=== PATIENT | female | born 1955 | race Caucasian/White ===

== ENCOUNTER 2016-09-15 14:00 | Emergency (ER) | payer MEDICARE, OTHER ==
[2016-09-15 14:43] LABS: BILIRUBIN NEGATIVE (NEGATIVE); BLOOD NEGATIVE Ery/uL (NEGATIVE); CLARITY CLEAR (CLEAR); COLOR STRAW (YELLOW); GLUCOSE (U) NORMAL (NORMAL); KETONE (U) NEGATIVE (NEGATIVE); LEUKOCYTES NEGATIVE Leu/uL (NEGATIVE); NITRITE NEGATIVE (NEGATIVE); PROTEIN NEGATIVE (NEGATIVE); SPECIFIC GRAVITY <=1.005 (1.001-1.030); UROBILINOGEN 0.2 mg/dL (0.2-1.0)
[2016-09-15 15:19] LABS: BASOPHIL 0.4 % (0-2); EOSINOPHIL 0.7 % (0-5); HCT 44.5 % (37.0-47.0); HGB 15.2 g/dl (12.5-16.0); LYMPHOCYTE 29.1 % (15-48); MCH 30.2 pg (25.0-31.0); MCHC 34.2 g/dL (32.0-36.0); MCV 88.5 fL (78.0-100.0); MONOCYTE 10.5 % (0-12); MPV 8.9 fL (6.0-9.5); NEUTROPHIL 59.3 % (41-80); PLT 326 K/uL (150-400); RBC 5.03 M/uL (4.20-5.40); RDW 12.9 % (11.5-14.0); WBC 7.4 K/uL (4.0-10.5)
[2016-09-15 15:46] LABS: ALBUMIN 4.7 g/dL (3.4-4.8); POTASSIUM 4.2 mmol/L (3.5-5.1)
[2016-09-15 15:59] LABS: BILIRUBIN - TOTAL 0.3 mg/dL (0.1-1.0); CREATININE 0.9 mg/dL (0.5-1.0); GLOBULIN (CALCULATION) 2.5 g/dL (2.2-4.2); TOTAL PROTEIN 7.2 g/dL (6.4-8.3)
== END 2016-09-15 17:31 | disposition home or self-care (01) ==
LOC: FER 14:00
PROVIDERS: Emergency Medicine
DX: R10.31 Right lower quadrant pain (principal); R14.3 Flatulence; E86.0 Dehydration; I10 Essential (primary) hypertension; E03.9 Hypothyroidism, unspecified; M46.90 Unspecified inflammatory spondylopathy, site unspecified; F17.210 Nicotine dependence, cigarettes, uncomplicated; Z79.899 Other long term (current) drug therapy; Z88.0 Allergy status to penicillin; Z87.19 Personal history of other diseases of the digestive system; Z98.890 Other specified postprocedural states
CPT/HCPCS: 36415; 74000; 80053; 81003; 85025

== ENCOUNTER 2020-10-17 16:45 | Emergency (ER) | payer MEDICARE ==
[~2020-10-17 16:45] MED LIST: ASPIRIN EC81 MG PO; BENTYL10 MG PO; CLEOCIN300 MG PO; CYMBALTA 30MG C30 MG PO; INDERAL LA80 MG PO; MIRALAX 238GM238 GM PO; NEXIUM40 MG PO; PERCOCET 5-3251 EACH PO; PHENERGAN25 M1 PO; PRAVACHOL20 MG PO; SYNTHROID75 MCG PO; XANAX0.25 MG PO; ZOFRAN ODT4 MG SL; ZOLPIDEM 10MG T10 MG PO
[2020-10-17 20:00] LABS: BASOPHIL 0.8 % (0-2); EOSINOPHIL 0.9 % (0-7); HCT 40.5 % (37.0-47.0); HGB 13.6 g/dl (12.5-16.0); LYMPHOCYTE 23.6 % (15-48); MCH 31.4 pg (25.0-31.0); MCHC 33.6 g/dL (32.0-36.0); MCV 93.5 fL (78.0-100.0); MONOCYTE 9.4 % (0-12); MPV 8.3 fL (6.0-9.5); NRBC 0; PLT 269 K/uL (150-400); RBC 4.33 M/uL (4.20-5.40); WBC 7.4 K/uL (4.0-10.5)
[2020-10-17 20:19] LABS: ALBUMIN 3.8 g/dL (3.4-5.0); BILIRUBIN - TOTAL 0.3 mg/dL (0.2-1.0); BUN/CREAT RATIO (CALC) 11.4 RATIO; CREATININE 0.7 mg/dL (0.51-0.95); GLOBULIN (CALCULATION) 3.1 g/dL; TOTAL PROTEIN 6.9 g/dL (6.4-8.2)
[2020-10-17 20:27] LABS: POTASSIUM 4.2 mmol/L (3.5-5.1)
[2020-10-17 21:20] LABS: BILIRUBIN NEGATIVE (NEGATIVE); BLOOD TRACE-INTACT Ery/uL (NEGATIVE); CLARITY CLEAR (CLEAR); COLOR YELLOW (YELLOW); GLUCOSE (U) NORMAL (NORMAL); LEUKOCYTES NEGATIVE Leu/uL (NEGATIVE); NITRITE NEGATIVE (NEGATIVE); PROTEIN NEGATIVE (NEGATIVE); SPECIFIC GRAVITY <=1.005 (1.001-1.030); UROBILINOGEN 0.2 mg/dL (0.2-1.0); pH 6.5 (5.0-9.0)
[2020-10-17 21:24] LABS: BACTERIA TRACE; URINARY RBC RARE
== END 2020-10-17 23:44 | disposition home or self-care (01) ==
LOC: FER 16:45
PROVIDERS: Emergency Medicine
DX: R10.9 Unspecified abdominal pain (principal); G89.29 Other chronic pain; I10 Essential (primary) hypertension; F17.200 Nicotine dependence, unspecified, uncomplicated; Z79.899 Other long term (current) drug therapy; Z88.0 Allergy status to penicillin; Z98.890 Other specified postprocedural states
CPT/HCPCS: 36415; 80053; 81001; 82150; 83690; 85025; J1885

== ENCOUNTER 2021-01-19 17:23 | Emergency (ER) | payer MEDICARE ==
[2021-01-19 19:57] LABS: BASOPHIL 0.8 % (0-2); EOSINOPHIL 0.6 % (0-7); HCT 39.3 % (37.0-47.0); HGB 13.6 g/dl (12.5-16.0); LYMPHOCYTE 20.6 % (15-48); MCH 31.9 pg (25.0-31.0); MCHC 34.6 g/dL (32.0-36.0); MONOCYTE 9.2 % (0-12); MPV 8.4 fL (6.0-9.5); NEUTROPHIL 68.5 % (41-80); NRBC 0; PLT 269 K/uL (150-400); RBC 4.27 M/uL (4.20-5.40); RDW 12.1 % (11.5-14.0); WBC 6.5 K/uL (4.0-10.5)
[2021-01-19 20:17] LABS: ALBUMIN 3.7 g/dL (3.4-5.0); BILIRUBIN - TOTAL 0.4 mg/dL (0.2-1.0); BUN/CREAT RATIO (CALC) 10.8 RATIO; CREATININE 0.74 mg/dL (0.51-0.95); GLOBULIN (CALCULATION) 3.2 g/dL; POTASSIUM 3.8 mmol/L (3.5-5.1); TOTAL PROTEIN 6.9 g/dL (6.4-8.2)
[2021-01-19 20:30] LABS: LACTIC ACID 1.6 mmol/L (0.4-1.9)
[2021-01-19] MEDS ORDERED: NORCO 5-325 TA1 EACH PO ×2 (21:36→21:58)
[2021-01-19] MEDS ORDERED: ZOFRAN4 M1 PO (21:36)
[2021-01-19 22:06] LABS: BILIRUBIN NEGATIVE (NEGATIVE); BLOOD NEGATIVE Ery/uL (NEGATIVE); CLARITY CLEAR (CLEAR); COLOR YELLOW (YELLOW); GLUCOSE (U) NORMAL (NORMAL); LEUKOCYTES NEGATIVE Leu/uL (NEGATIVE); NITRITE NEGATIVE (NEGATIVE); PROTEIN NEGATIVE (NEGATIVE); SPECIFIC GRAVITY <=1.005 (1.001-1.030); UROBILINOGEN 0.2 mg/dL (0.2-1.0)
== END 2021-01-19 22:11 | disposition home or self-care (01) ==
LOC: FER 17:23
PROVIDERS: Emergency Medicine
DX: R10.31 Right lower quadrant pain (principal); I10 Essential (primary) hypertension; F17.210 Nicotine dependence, cigarettes, uncomplicated; Z88.0 Allergy status to penicillin
CPT/HCPCS: 36415; 71045; 80053; 81003; 83605; 84484; 85025; J2270; J2405; J7030; Q9967

== ENCOUNTER 2021-05-15 17:48 | Emergency (ER) | payer MEDICARE ==
[~2021-05-15 17:48] MED LIST changes: +NORCO 5-325 TA1 EACH PO; +ZOFRAN4 M1 PO
[2021-05-15 18:31] LABS: BASOPHIL 0.6 % (0-2); EOSINOPHIL 1.1 % (0-7); HCT 40.3 % (37.0-47.0); HGB 13.5 g/dl (12.5-16.0); LYMPHOCYTE 25.9 % (15-48); MCH 31.3 pg (25.0-31.0); MCHC 33.5 g/dL (32.0-36.0); MCV 93.5 fL (78.0-100.0); MONOCYTE 9.3 % (0-12); MPV 8.7 fL (6.0-9.5); NEUTROPHIL 62.8 % (41-80); NRBC 0; PLT 257 K/uL (150-400); RBC 4.31 M/uL (4.20-5.40); RDW 12.2 % (11.5-14.0); WBC 7.2 K/uL (4.0-10.5)
[2021-05-15 18:44] LABS: ALBUMIN 3.9 g/dL (3.4-5.0); BILIRUBIN - TOTAL 0.2 mg/dL (0.2-1.0); BUN/CREAT RATIO (CALC) 12.2 RATIO; CREATININE 0.82 mg/dL (0.51-0.95); GLOBULIN (CALCULATION) 2.9 g/dL; POTASSIUM 4.1 mmol/L (3.5-5.1); TOTAL PROTEIN 6.8 g/dL (6.4-8.2)
[2021-05-15 20:54] LABS: LACTIC ACID 1.2 mmol/L (0.4-1.9)
[2021-05-15 21:25] LABS: BILIRUBIN NEGATIVE (NEGATIVE); BLOOD TRACE-INTACT Ery/uL (NEGATIVE); CLARITY CLEAR (CLEAR); COLOR YELLOW (YELLOW); GLUCOSE (U) NORMAL (NORMAL); LEUKOCYTES NEGATIVE Leu/uL (NEGATIVE); NITRITE NEGATIVE (NEGATIVE); PROTEIN NEGATIVE (NEGATIVE); SPECIFIC GRAVITY <=1.005 (1.001-1.030); UROBILINOGEN 0.2 mg/dL (0.2-1.0)
[2021-05-15 21:33] LABS: URINARY RBC RARE; URINARY WBC RARE
[2021-05-15 21:34] LABS: SQUAMOUS EPITHELIAL CELLS RARE
== END 2021-05-15 23:50 | disposition home or self-care (01) ==
LOC: FER 17:48
PROVIDERS: Internal Medicine; Nurse Practitioner Family
DX: K29.50 Unspecified chronic gastritis without bleeding (principal); I10 Essential (primary) hypertension; F17.210 Nicotine dependence, cigarettes, uncomplicated; Z88.0 Allergy status to penicillin; Z79.899 Other long term (current) drug therapy
CPT/HCPCS: 36415; 80053; 81001; 82150; 83605; 83690; 85025; J1885; J2405; J7030; Q9967